=== PATIENT | female | born 1975 | race Caucasian/White ===

== ENCOUNTER 2018-04-18 07:27 | Inpatient (IN) | payer MEDICAID ==
[2018-04-11 08:59] VITALS: Ht 152.4 cm; Wt 87.3 kg
[~2018-04-18] VITALS: Ht 152.4 cm; Wt 87.3 kg
[2018-04-18] VITALS (33 sets, daily range): BP systolic 110–144; BP diastolic 55–80; PULSE 62–86; RESP 15–22
[~2018-04-18 07:27] MED LIST: EPHEDrine SULFATE 50 MG/5 ML SYG ONE; FERR27TA; PREN-39
[2018-04-18] MEDS ORDERED: SOD CHLORIDE 0.9% 1,000 ML IV SCH (08:00)
[2018-04-18] MEDS ORDERED: CEFAZOLIN 2 GM/50 ML (PMX) 50 ML IVPB ONE (08:00)
[2018-04-18] MEDS ORDERED: ACETAMINOPHEN 500 MG TAB PO ONE (08:00)
[2018-04-18] MEDS ORDERED: LIDOCAINE 2% (SDV) 5 ML INJ ONE (09:29)
[2018-04-18] MEDS ORDERED: PROPOFOL 40 ML ONE (09:29)
[2018-04-18] MEDS ORDERED: FENTAnyl 50 MCG/ML VIAL ONE (09:29)
[2018-04-18] MEDS ORDERED: CEFAZOLIN 1 GM INJ ONE (09:29)
[2018-04-18] MEDS ORDERED: ONDANSETRON 4 MG INJ ONE (09:29)
[2018-04-18] MEDS ORDERED: MIDAZOLAM 1 MG/ML 2 ML INJ ONE (09:29)
[2018-04-18] MEDS ORDERED: FAMOTIDINE 20 MG INJ ONE (09:30)
--- NOTE | 2018-04-18 10:12 | PREAC ---
Date/Time of Note Date/Time of Note DATE: 04/18/18 TIME: 10:10 Anesthesia Eval and Record Evaluation Time Pre-Procedure Interview DATE: 04/18/18 TIME: 10:10 Age 42 Sex female NPO: 8 hrs Preoperative diagnosis L breast CA Planned procedure L modified radical mastectomy Past Medical History Past Medical History: Includes GI: Obesity Surgery & Anesthesia Issues No known issue Meds Anticoagulation: No Beta Zamzam within 24 hr: No Reason Beta Zamzam not given: Pt. not on B-Zamzam Discontinued Reported Medications Ferrous Sulfate (Iron) 1 Tab Tablet 01/03/10 Vits W-Ca,Fe,Fa(<1MG) ( Vitamins) 1 Tab Tablet 01/03/10 Current Medications Sodium Chloride 1,000 ml @ 75 mls/hr [id number] IV ; Start 04/18/18 at 08:00; Stop 04/18/18 at 21:19 Meds reviewed: Yes Allergies Coded Allergies: No Known Drug Allergy (Verified Allergy, Unknown, 01/17/10) Allergies Reviewed: Yes Labs/Studies Labs Reviewed: Reviewed by anesthesiologist test: N/A Pre-procedure Exam Last vitals Vital Signs Date Temp Pulse Resp B/P (MAP) Pulse Ox O2 O2 Flow FiO2 Time Delivery Rate 04/18/18 97.3 72 18 130/68 Room Air 08:35 (88) Airway: Adequate mouth opening, Adequate thyromental dist Mallampati: Mallampati II Teeth: Normal (missing upper left molar) Lung: Normal Heart: Normal ASA Physical Status ASA physical status: 2 Emergency: None Planned Anesthetic General/MAC: LMA Pre-operative Attestations Prior to commencing anesthesia and surgery, the patient was re-evaluated, there was verification of: *The patient's identity *The results of appropriate recent lab work and preoperative vital signs *The above evaluation not changing prior to induction *Anesthetic plan, risk benefits, alternative and complications discussed with patient/family; questions answered; patient/family understands, accepts and wishes to proceed. Quality Lab Technician used POLA CAMPBELL Apr 18, 2018 10:12
[2018-04-18] MEDS ORDERED: morphine (1 MG/ML) 10ML SYRINGE IV PRN ×2 (10:30)
[2018-04-18] MEDS ORDERED: FENTAnyl 50 MCG/ML VIAL IV PRN ×2 (10:30)
[2018-04-18] MEDS ORDERED: LABETALOL HCL 20MG INJ IV PRN (10:30)
[2018-04-18] MEDS ORDERED: DIPHENHYDRAMINE 50 MG INJ IV PRN (10:30)
[2018-04-18] MEDS ORDERED: ONDANSETRON 4 MG INJ IV PRN ×2 (10:30→12:00)
[2018-04-18] MEDS ORDERED: OXYCODONE/ACETAMINOPHEN (5/325) TAB PO PRN ×2 (10:30)
[2018-04-18] MEDS ORDERED: HYDROmorphONE 1 MG/5 ML IV SYRINGE IV PRN ×2 (10:30)
[2018-04-18] MEDS ORDERED: MEPERIDINE 25 MG INJ IV PRN (10:30)
[2018-04-18] MEDS ORDERED: ALBUTEROL 0.083% (NEB) 2.5 MG/3 ML AMP HHN PRN (10:30)
[2018-04-18] MEDS ORDERED: METOCLOPRAMIDE 10 MG INJ ONE (10:49)
--- NOTE | 2018-04-18 11:46 | SIPON ---
Date/Time of Note Date/Time of Note DATE: 04/18/18 TIME: 11:45 Operative Report Preoperative Diagnosis Invasive cancer left breast Postoperative Diagnosis Same Operation/Procedure Performed Left modified radical mastectomy Surgeon see signature line assistant facility manager Dr Gonzalez Anesthesia: general Estimated blood loss: 10 - 50 ml's Transfusion Required none Specimen Left breast and axillary contents and additional inferior lateral portion of breast tissue Grafts/Implants none Complications none ELA ALVAREZ MD Apr 18, 2018 11:46
[2018-04-18] MEDS ORDERED: ACETAMINOPHEN 1000MG/100ML IV 100 ML IVPB PRN (12:00)
--- NOTE | 2018-04-18 12:30 | PAC ---
Date/Time of Note Date/Time of Note DATE: 04/18/18 TIME: 12:30 Post-Anesthesia Notes Post-Anesthesia Note Last documented vital signs Vital Signs Date Temp Pulse Resp B/P (MAP) Pulse Ox O2 O2 Flow FiO2 Time Delivery Rate 04/18/18 97.8 68 21 131/79 97 Room Air 12:13 (96) 04/18/18 97.8 11:49 Activity: WNL Respiratory function: WNL Cardiovascular function: WNL Mental status: Baseline Pain reasonably controlled: Yes Hydration appropriate: Yes Nausea/Vomiting absent: No ILEANA RICHARDS MD Apr 18, 2018 12:30
--- NOTE | 2018-04-18 13:15 | OPR ---
DATE OF OPERATION: 04/18/2018 PREOPERATIVE DIAGNOSIS: Invasive cancer, left breast. POSTOPERATIVE DIAGNOSIS: Invasive cancer, left breast. OPERATION PERFORMED: Left modified radical mastectomy. ANESTHESIA: General. ANESTHESIOLOGIST: Florinda Zavala MD SURGEON: Jony Alonso MD DISABILITY AIDE: Lee Gonzalez MD INDICATIONS FOR PROCEDURE: The patient is a very unfortunate 42-year-old female who presented with a palpable mass in her left breast. Workup including biopsy revealed invasive cancer. Due to the loc ation of the tumor which was directly under the nipple areolar complex at the 2 o'clock location, it was deemed that it was not possible to resect the tumor without removing the nipple areolar complex; therefore, the patient requested a left modified radical mastectomy and was consented. DESCRIPTION OF PROCEDURE: The patient was brought to the operating theater, placed under general end otracheal tube anesthesia. The left breast and axillary region was prepped and draped in usual steri le fashion. Planned elliptical incision was demarcated with marking pen widely around the nipple are olar complex including the skin directly overlying the palpable tumor. The incision was then carried out with 15-blade scalpel. Subcutaneous tissue was dissected with cautery. Skin edges were then el evated with Allis Ciales clamps and skin flaps were created using cautery, first superiorly to the cla vicle, then medially to the sternal border, inferiorly to the inframammary fold and laterally until t he latissimus dorsi muscle was identified throughout its course. Mastectomy then took place from med ial to lateral using cautery at the border of the pectoralis major muscle. The pectoralis minor musc le was identified. Clavipectoral fascia was incised. With blunt dissection along the chest wall, th e long thoracic nerve was identified and kept out of harm's way. It became obvious that there were m ultiple pathologic lymph nodes within the axilla; therefore, an extended level 1 and level 2 lymph no de dissection [address] place. This was accomplished using the LigaSure device. Multiple enlarged lymph nodes were thus removed. The final connective tissue attachments to the latissimus dorsi muscle were then transected with cautery. Specimen was removed, oriented and sent for permanent pathologic anal ysis. The axilla was inspected. There was no evidence of ongoing bleeding. The skin flaps were ins pected and there was some relatively thickened tissue on the inferior lateral region of the flap; the refore, additional tissue was taken from this area and sent separately for pathologic analysis. The wound was then irrigated a final time. Residual bleeding was controlled with cautery. Two #10 Frenc h Dylan-Mckeon drains were then brought through the left mid axillary line, one was cut to size and laid within the axilla, the other was cut to size and laid over the pectoralis major muscle. Both dr ramos were secured in place with 2-0 nylon suture in a standard fashion. The skin was then reapproxim ated with a deep dermal layer of 4-0 Vicryl sutures in interrupted fashion, followed by final skin ap proximation with skin juma. The patient tolerated the procedure well. The estimated blood loss w as approximately 50 mL. There were no complications and the patient was transported in stable condit ion to the recovery room where circumferential compression dressing was applied. Dictated By: JONY ALONSO MD TL/ELISEO Conf#: [id number] DID#: [id number] CC: NAMRATA DE LA CRUZ MD;*EndCC*
[2018-04-18] MEDS: morphine 2 MG INJ IV PRN ×2 (14:41→17:33)
[2018-04-18] MEDS: D5W-0.45 NACL + KCL 20 MEQ 1,000 ML IV SCH (14:43)
[2018-04-19] MEDS: D5W-0.45 NACL + KCL 20 MEQ 1,000 ML IV SCH ×3 (00:19→19:30)
[2018-04-19 00:31] VITALS: BP 107/58; PULSE 67; RESP 18
--- NOTE | 2018-04-19 00:57 | PN ---
DATE: 04/18/2018 CHIEF COMPLAINT AND HISTORY OF PRESENT ILLNESS: The patient is a 42-year-old female with no signific ant past medical history except x2. The patient was seen by Dr. Alvarez as an outpatient. T he patient presented as an outpatient with palpable mass in the left breast. Workup including biopsy revealed invasive cancer. The patient was brought into hospital today and underwent left modified r adical mastectomy. The patient has significant chest wall pain and is being admitted for further shelly luation and management. The patient denied any history of headache, dizziness, syncope. No history of chest pain, shortness of breath. No history of abdominal pain. No history of nausea, vomiting, d iarrhea. No history of leg edema. No history of weakness or numbness in any extremity. REVIEW OF SYSTEMS: A total of 12 systems was reviewed. All positive and negative findings have been described in HPI. Rest of the systems was unremarkable. ALLERGIES: NONE. SOCIAL HISTORY: No smoking, no alcohol. FAMILY HISTORY: Negative for cancer of the breast or any [employer] REP cancer. MEDICATIONS PRIOR TO ADMISSION: None. PHYSICAL EXAMINATION: GENERAL: Revealed the patient to be awake, alert. VITAL SIGNS: Temperature 98, pulse 62, respirations 16, blood pressure 113/62, O2 saturation 94% on room air. HEENT: Atraumatic, normocephalic. Conjunctivae and lids are normal. Oropharynx is clear. NECK: Supple. No mass or thyromegaly. CHEST: Fairly clear. CARDIOVASCULAR: S1, S2 normal. No murmur. ABDOMEN: Soft, nondistended, nontender. Bowel sounds plus. EXTREMITIES: No leg edema. NEUROLOGIC: The patient is awake, alert, fairly oriented with no gross focal deficit. LABORATORY DATA: Pending. IMPRESSION: Left breast invasive cancer status post left modified radical mastectomy. PLAN: The patient will be admitted on medical floor. The patient will be started on clear liquid di et, which will be advanced as tolerated. We will use SCD for DVT prophylaxis. For pain control, the patient will be started on IV Tylenol, [place] and morphine depending upon severity of the pain. We w ill do followup labs. If the patient's condition continues to do well and is cleared by surgery, she will be discharged home on 04/19/2018. Dictated By: NAMRATA TAYLOR/ELISEO Conf#: [id number] [facility]#: [id number] CC: ELA ALVAREZ MD;*[facility]*
[2018-04-19 04:46] VITALS: BP 103/55; PULSE 71; RESP 18
[2018-04-19 08:08] VITALS: BP 132/70; PULSE 69; RESP 18
[2018-04-19] MEDS: HYDROCODONE/APAP (5/325) TAB PO PRN ×2 (11:05→18:19)
[2018-04-19 14:46] VITALS: BP 108/55; PULSE 65; RESP 18
--- NOTE | 2018-04-19 15:18 | PN ---
DATE: 04/19/2018 Postop day #1 status post left breast modified radical mastectomy for cancer. SUBJECTIVE: No specific complaint. OBJECTIVE: GENERAL: Alert, awake, oriented. VITAL SIGNS: Temperature maximum 98.9 in the morning and today afternoon at 2:30 of 98.2, heart rate 71, respiration 18, blood pressure 132/70, saturation 97% room air. LABORATORY DATA: Electrolytes: Sodium, potassium within normal limits. Hematology: WBC 8200 with 68% segmented. INPUT AND OUTPUT: There are [address] from time of operation yesterday to today 7:00 in the morning. One of them has drained 90 mL. The other one was 60 mL, totaling 150 Ml The fluid in the bag is serosanguineous. Dressing is not too tight. ASSESSMENT AND PLAN: The patient can be discharged home with pain medication to be followed with Dr. Alonso' office, to call Dr. Alonso and make an appointment to follow. Pain medication will be given to the patient. Dictated By: ANNI LOPES MD PS/NTS Conf#: [id number] DID#: [id number] CC: ELA ALONSO MD; NAMRATA DE LA CRUZ MD;*EndCC* MTDD
[2018-04-19 20:53] VITALS: BP 130/62; PULSE 65; RESP 18
--- NOTE | 2018-04-19 21:37 | DS ---
DATE OF ADMISSION: 04/18/2018 DATE OF DISCHARGE: 04/19/2018 DISCHARGE DIAGNOSIS: Left breast invasive cancer status post left modified radical mastectomy by Dr. Alonso. DISCHARGE MEDICATION: Tylenol 650 q.6h. p.r.n. or Motrin 400 mg q.6h. p.r.n. The patient is to take [id number] medication. FOLLOWUP: The patient is to follow up with Dr. Alonso within a week and DANIEL drainage care has been exp lained to her. REASON FOR ADMISSION AND HOSPITAL COURSE: The patient is a 42-year-old female who was diagnosed with invasive cancer, left breast, as an outpatient and was brought into the hospital yesterday and under went a left modified radical mastectomy. The patient had significant postoperative pain; therefore, the patient was admitted for further evaluation and management. The patient was started on Tylenol, Dendron and IV morphine for pain control. The patient postoperatively has done well and this morning, the patient had no fever or chills. PHYSICAL EXAMINATION: VITAL SIGNS: Temperature 98.2, pulse 65, respirations 18, blood pressure 108/55, O2 sat 96% on room air. HEENT: No eye discharge or redness. Conjunctivae are normal. Oropharynx is clear. NECK: No mass. CHEST: Fairly clear. CARDIOVASCULAR: S1 and S2 normal. No murmur. ABDOMEN: Soft, nondistended, nontender. EXTREMITIES: No leg edema. NEUROLOGIC: The patient is awake, alert, fairly oriented with no gross focal deficit. LABORATORY DATA: Labs done today, WBC 8.2, hemoglobin 10.5, platelet 253. Sodium 139, potassium 3.7 , BUN 6, creatinine 0.4, calcium 8.2. Liver enzymes normal. CONDITION ON DISCHARGE: Stable. Plan of care was discussed with the patient's family. DIET: Regular diet. Dictated By: NAMRATA DE LA CRUZ MD AB/NTS Conf#: [id number] DID#: [id number] CC: ELA ALONSO MD;*EndCC*
== END 2018-04-19 21:15 | disposition home or self-care (01) | DRG 583 ==
LOC: SDS 07:27 → REC 11:47 → MS1 14:01
PROVIDERS: ADMIT Surgery Surgical Oncology; ATTEND Surgery Surgical Oncology
PROC: 0HBU0ZZ Excision of Left Breast, Open Approach (ICD-10-PCS; principal; 2018-04-18 10:30)
DX: C50.912 Malignant neoplasm of unspecified site of left female breast (principal); Z17.0 Estrogen receptor positive status [ER+]
CPT/HCPCS: 80053; 84703; 85025; 88307; J0690; J2250; J2270; J2405; J2765; J3010; J3480

== ENCOUNTER 2018-06-08 07:52 | Day surgery (SDC) | payer MEDICAID ==
[~2018-06-08] VITALS: Ht 152.4 cm; Wt 88.2 kg
[2018-06-08] VITALS (9 sets, daily range): BP systolic 104–125; BP diastolic 56–76; PULSE 60–66; RESP 15–21; Ht 152.4 cm; Wt 88.2 kg
--- NOTE | 2018-06-08 08:12 | HPN ---
Date/Time of Note Date/Time of Note DATE: 06/08/18 TIME: 08:11 Interval H&P Admission Note Pt. seen H&P reviewed: No system changes NOHEMY LOCO MD Jun 08, 2018 08:12
[2018-06-08] MEDS ORDERED: CEFAZOLIN 1 GM/50 ML (PMX) 50 ML IVPB ONE ×2 (08:30→10:59)
[2018-06-08] MEDS ORDERED: POLYMYXIN/BACITRACIN 1L IRRIG IRR ONE (08:30)
[2018-06-08] MEDS ORDERED: SOD CHLORIDE 0.9% 1,000 ML IV SCH (08:30)
[2018-06-08] MEDS ORDERED: HEPARIN 1000 UNITS/ML 10 ML INJ ONE (09:34)
[2018-06-08] MEDS ORDERED: FENTAnyl 50 MCG/ML VIAL ONE (10:59)
[2018-06-08] MEDS ORDERED: LIDOCAINE 1%/EPI (1:100,000) (MDV) 20 ML ONE (10:59)
[2018-06-08] MEDS ORDERED: MIDAZOLAM 1 MG/ML 2 ML INJ ONE (10:59)
[2018-06-08] MEDS ORDERED: LIDOCAINE 1% (MPF) 5 ML VIAL ONE (11:17)
[2018-06-08] MEDS ORDERED: HYDROCODONE/APAP (5/325) TAB PO PRN (12:30)
== END 2018-06-08 15:17 | disposition home or self-care (01) ==
LOC: SDS 07:52
PROVIDERS: ATTEND Internal Medicine Hematology & Oncology
DX: C50.912 Malignant neoplasm of unspecified site of left female breast (principal)
CPT/HCPCS: 36561; 76942; C1788; J0690; J1644; J2250; J3010; Z7610